=== PATIENT | female | born 1955 | race Caucasian/White ===

== ENCOUNTER 2018-10-08 11:48 | Day surgery (SDC) | payer OTHER, BC ==
[2018-10-08] MEDS ORDERED: LIDOCAINE 2% (SDV) 5 ML INJ (14:28)
[2018-10-08] MEDS ORDERED: PROPOFOL 40 ML (14:28)
[2018-10-08] MEDS ORDERED: ONDANSETRON 4 MG INJ IV (14:30)
[2018-10-08] MEDS ORDERED: ALBUTEROL 0.083% (NEB) 2.5 MG/3 ML AMP HHN (14:30)
[2018-10-08] MEDS ORDERED: ACETAMINOPHEN 500 MG TAB PO (14:30)
[2018-10-08] MEDS ORDERED: FENTAnyl 50 MCG/ML VIAL IV (14:30)
== END 2018-10-08 14:59 | disposition home or self-care (01) ==
LOC: GIL 11:48
DX: Z12.11 Encounter for screening for malignant neoplasm of colon (principal); K64.8 Other hemorrhoids; I10 Essential (primary) hypertension; E11.9 Type 2 diabetes mellitus without complications; Z79.82 Long term (current) use of aspirin; Z79.84 Long term (current) use of oral hypoglycemic drugs
CPT/HCPCS: 45378; 82962